=== PATIENT | male | born 1970 | race Caucasian/White ===

== ENCOUNTER 2017-08-26 17:10 | Emergency (ER) | payer OTHER ==
--- NOTE | 2017-08-26 17:52 | ED ---
General Adult HPI - General Chief complaint: Skin/Abscess/Foreign Body Stated complaint: R wrist swelling Time Seen by Provider: 08/26/17 17:34 Source: patient, RN notes reviewed Mode of arrival: ambulatory Limitations: no limitations - History of Present Illness Initial comments: This 47-year-old male presents emergency Department chief complaint right wrist pain. Patient states that yesterday he quickly moved and felt a pop in his wrist and states that he noticed some swelling on the ulnar aspect. 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 Patient states he is [id number]. He does complain of some numbness and tingling in his digits 1 through 3. Denies any weakness associated with. He states area slightly tender over the area swelling. Denies any redness or discoloration to his hand. - Related Data Home Medications Medication Instructions Recorded Confirmed Glimepiride [Amaryl] 2 mg PO AC-BRKFST 08/26/17 08/26/17 Lisinopril [Zestril] 5 mg PO DAILY 08/26/17 08/26/17 Previous Rx's Medication Instructions Recorded Ibuprofen [Motrin] 600 mg PO Q8HR PRN #30 tab 08/26/17 Allergies Allergy/AdvReac Type Severity Reaction Status Date / Time amoxicillin Allergy Anaphylaxis Verified 08/26/17 18:02 Review of Systems ROS Statement: Those systems with pertinent positive or pertinent negative responses have been documented in the HPI. ROS Other: All systems not noted in ROS Statement are negative. Past Medical History Additional Past Medical History / Comment(s): carpal tunel History of Any Multi-Drug Resistant Organisms: None Reported Past Surgical History: Orthopedic Surgery Additional Past Surgical History / Comment(s): ulnar nerve surgery Past Psychological History: No Psychological Hx Reported Smoking Status: Current every day smoker Past Alcohol Use History: None Reported Past Drug Use History: None Reported General Exam Limitations: no limitations General appearance: alert, in no apparent distress Head exam: Present: atraumatic, normocephalic, normal inspection Neck exam: Present: normal inspection, full ROM. Absent: tenderness, meningismus, lymphadenopathy Respiratory exam: Present: normal lung sounds bilaterally. Absent: respiratory distress, wheezes, rales, rhonchi, stridor Cardiovascular Exam: Present: regular rate, normal rhythm, normal heart sounds. Absent: systolic murmur, diastolic murmur, rubs, gallop, clicks Extremities exam: Present: other (Right wrist there very of swelling over the ulnar aspect there is boggy in nature with no erythema no warmth approximately 3 cm x 2 cm irregular there is old scar noted in the generalized region along with scarring noted to the left ulnar groove region patient has equal technician test systems strength with equal pedal pulses and cap refill less than 2 seconds of all digits) Skin exam: Present: warm, dry Course Vital Signs 08/26/17 17:28 Temperature 98.3 F Pulse Rate 88 Respiratory 20 Rate Blood Pressure 153/74 O2 Sat by Pulse 98 Oximetry Medical Decision Making - Medical Decision Making 47-year-old male presented for right wrist swelling pain. Patient appears to have some surgery acute wrist strain and possible ganglion cyst. Patient will be Randy wrapped, given anti-inflammatories and follow-up with orthopedics. Return parameters were discussed. Disposition Clinical Impression: Right wrist sprain, Swelling of joint, wrist, right, Ganglion cyst Disposition: HOME SELF-CARE Condition: Stable Instructions: Wrist Injury (ED) Additional Instructions: Please return to the Emergency Department if symptoms worsen or any other concerns. Prescriptions: Ibuprofen [Motrin] 600 mg PO Q8HR PRN #30 tab PRN Reason: Pain Referrals: Pantera Rodriguez MD [Primary Care Provider] - 1-2 days Time of Disposition: 18:43
--- NOTE | 2017-08-26 18:10 | XR ---
EXAMINATION TYPE: XR wrist complete RT DATE OF EXAM: 08/26/2017 CLINICAL HISTORY: History of ganglion cyst with a right hand pain and swelling. TECHNIQUE: Frontal, lateral and oblique images of the right wrist are obtained. COMPARISON: None FINDINGS: There is no acute fracture/dislocation evident in the right wrist. The joint spaces in th e right wrist appear within normal limits. The overlying soft tissue appears unremarkable. IMPRESSION: There is no acute fracture or dislocation in the right wrist.
[2017-08-26 18:53] VITALS: BP 120/65; PULSE 82; RESP 18; TEMP 98.5
== END 2017-08-26 18:57 | disposition home or self-care (01) ==
LOC: EC 17:10
DX: M67.431 Ganglion, right wrist (principal); F17.200 Nicotine dependence, unspecified, uncomplicated; Z79.899 Other long term (current) drug therapy; Z88.0 Allergy status to penicillin
CPT/HCPCS: 99283

== ENCOUNTER 2017-11-01 13:07 | Emergency (ER) | payer OTHER ==
[2017-11-01 13:36] VITALS: TEMP 98.6
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
--- NOTE | 2017-11-01 14:36 | XR ---
Lumbar spine HISTORY: Low back pain, trauma 3 views of the lumbar spine There is an anterolisthesis grade 1-2 at L4-5. There is associated loss of disc height. Sclerosis pre sent in the posterior elements. Loss of disc height also present L5-S1. There is multilevel spondylos is. Lumbar vertebral bodies show preserved height and bone mineralization. IMPRESSION: Spondylolisthesis, facet arthropathy, degenerative disc disease.
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
[2017-11-01 15:09] VITALS: BP 137/78; PULSE 78; RESP 18
== END 2017-11-01 15:00 | disposition home or self-care (01) ==
LOC: EC 13:07
DX: S16.1XXA Strain of muscle, fascia and tendon at neck level, initial encounter (principal); S39.012A Strain of muscle, fascia and tendon of lower back, initial encounter; E11.9 Type 2 diabetes mellitus without complications; F17.200 Nicotine dependence, unspecified, uncomplicated; Z79.84 Long term (current) use of oral hypoglycemic drugs; Z79.899 Other long term (current) drug therapy; W22.8XXA Striking against or struck by other objects, initial encounter; Y92.69 Other specified industrial and construction area as the place of occurrence of the external cause; Y99.0 Civilian activity done for income or pay
CPT/HCPCS: 72050; 72100; 99284

== ENCOUNTER → 2017-11-23 | Outpatient (CLI) | payer OTHER | END | disposition home or self-care (01) | LOC: RADMRIMAIN 08:49 | PROVIDERS: ATTEND Emergency Medicine | DX: Z53.9 Procedure and treatment not carried out, unspecified reason (principal) ==